=== PATIENT | female | born 1970 | race Caucasian/White ===

== ENCOUNTER 2017-03-25 11:27 | Emergency (ER) | payer BC, OTHER ==
[2017-03-25 11:33] VITALS: O2SAT 100
--- NOTE | 2017-03-25 11:57 | CPEKG ---
Heart Rate: 72 RR Interval: 833 P-R Interval: 136 QRSD Interval: 88 QT Interval: 408 QTC Interval: 447 P [place]: 40 QRS [place]: 76 T Wave [place]: 59 EKG Severity - BORDERLINE ECG - EKG Impression: SINUS RHYTHM EKG Impression: BORDERLINE T ABNORMALITIES, ANT-LAT LEADS Electronically Signed By: Ana Vazquez 25-Mar-2017 13:47:22
--- NOTE | 2017-03-25 12:12 | EDPHY ---
H & P Stated Complaint: "fluttery heart" and SOB starting last night. Hx of PAc's Time Seen by Provider: 03/25/17 11:58 HPI/ROS: CHIEF COMPLAINT: Fluttery feeling in her heart HISTORY OF PRESENT ILLNESS: This is a 46-year-old female presenting to the emergency department complaining of intermittent heart flutter with shortness of breath. Patient states this is been ongoing since August 2015 was seen at [facility] at this time for same symptoms. Patient states over the past 8 weeks she has noticed an increase in intermittent "heart flutter especially at night when I lay down". Patient states symptoms seem to worsen this morning at 5:30 a.m. after waking up and started her activities for the day. Patient also reports when she feels these flutter she gets an intermittent dizziness, but then symptoms resolved. Denies any chest pain or shortness of breath at this time. Denies any history of hypertension, CVA, nonsmoker no history of PEs or the DVTs REVIEW OF SYSTEMS: Constitutional: No fever, no chills. Fatigue Eyes: No discharge. No blurred vision ENT: No sore throat. Cardiovascular: No chest pain, "heart flutters" Respiratory: No cough. Intermittent shortness of breath. Gastrointestinal: No abdominal pain, no vomiting. Genitourinary: No hematuria. Musculoskeletal: No back pain. Skin: No rashes. Neurological: No headache. Intermittent dizziness Source: Patient - Personal History LMP (Females 10-55): Irregular Current Tetanus Diphtheria and Acellular Pertussis (TDAP): Yes - Medical/Surgical History Hx Asthma: No Hx Chronic Respiratory Disease: No Hx Diabetes: No Hx Cardiac Disease: No Hx Renal Disease: No Hx Cirrhosis: No Hx Alcoholism: No Hx HIV/AIDS: No Hx Splenectomy or Spleen Trauma: No Other PMH: throat cancer/hpv +. Arrythmia -PAC's. - Social History Smoking Status: Never smoked - Physical Exam Exam: General Appearance: Alert, no distress. HEENT: Normocephalic atraumatic Pupils equal and round no pallor or injection. Mucous membranes moist. Respiratory: There are no retractions, lungs are clear to auscultation. Cardiovascular: Regular rate and rhythm. Gastrointestinal: Abdomen is soft and nontender, no masses, bowel sounds normal. Neurological: No focal deficits. All cranial nerves intact patient seen questions appropriately Skin: Warm and dry, no rashes. Musculoskeletal: Neck is supple nontender. No calf tenderness on palpation negative Homans sign Extremities: symmetrical, full range of motion. Psychiatric: Patient is oriented X 3, patient acting appropriately Constitutional: Initial Vital Signs Temperature (C) 36.6 C 03/25/17 11:29 Heart Rate 74 03/25/17 11:29 Respiratory Rate 18 03/25/17 11:29 Blood Pressure 119/61 03/25/17 11:29 O2 Sat (%) 100 03/25/17 11:29 O2 Delivery Mode Room Air Allergies/Adverse Reactions: CT CONTRAST Allergy (Mild, Uncoded 02/26/10 10:52) Other-Enter Comments fluoroquinolones Allergy (Uncoded 02/28/14 15:33) Home Medications: Medication Instructions Recorded buPROPion SR [Wellbutrin Sr] 300 mg PO 02/25/13 Medical Decision Making ED Course/Re-evaluation: Discussed ED plan of care with patient: CBC, CMP, troponin, EKG. Patient is low risk stratification using Heart scores. Low risk for PE using PERC score 1315: Discussed all results with patient. Discharge home---> stable, discussed all discharge instructions with patient Differential Diagnosis: Other differential diagnosis considered but not limited to electrolyte imbalance , abnormal EKG, and PE - Data Points Laboratory Results: Laboratory Results 03/25/17 12:30 03/25/17 12:30 03/25/17 03/25/17 03/25/17 12:30 12:30 12:10 WBC 5.47 10^3/uL 10^3/uL (3.80-9.50) RBC 3.75 10^6/uL L 10^6/uL (4.18-5.33) Hgb 12.2 g/dL L g/dL (12.6-16.3) Hct 35.8 % L % (38.0-47.0) MCV 95.5 fL fL (81.5-99.8) MCH 32.5 pg pg (27.9-34.1) MCHC 34.1 g/dL g/dL (32.4-36.7) RDW 12.6 % % (11.5-15.2) Plt Count 176 10^3/uL 10^3/uL (150-400) MPV 10.5 fL fL (8.7-11.7) Neut % (Auto) 75.5 % H % (39.3-74.2) Lymph % (Auto) 16.6 % % (15.0-45.0) [place] % (Auto) 5.7 % % (4.5-13.0) Eos % (Auto) 1.3 % % (0.6-7.6) Baso % (Auto) 0.5 % % (0.3-1.7) Nucleat RBC Rel Count 0.0 % % (0.0-0.2) Absolute Neuts (auto) 4.13 10^3/uL 10^3/uL (1.70-6.50) Absolute Lymphs (auto) 0.91 10^3/uL L 10^3/uL (1.00-3.00) Absolute Monos (auto) 0.31 10^3/uL 10^3/uL (0.30-0.80) Absolute Eos (auto) 0.07 10^3/uL 10^3/uL (0.03-0.40) Absolute Basos (auto) 0.03 10^3/uL 10^3/uL (0.02-0.10) Absolute Nucleated RBC 0.00 10^3/uL 10^3/uL (0-0.01) Immature Gran % 0.4 % % (0.0-1.1) Immature Gran # 0.02 10^3/uL 10^3/uL (0.00-0.10) Sodium 137 mEq/L mEq/L (134-144) Potassium 4.1 mEq/L mEq/L (3.5-5.2) Chloride 106 mEq/L mEq/L (97-110) Carbon Dioxide 22 mEq/l mEq/l (22-31) Anion Gap 9 mEq/L mEq/L (8-16) BUN 13 mg/dL mg/dL (7-23) Creatinine 0.7 mg/dL mg/dL (0.6-1.0) Estimated GFR > 60 Glucose 117 mg/dL H mg/dL (70-100) Calcium 9.3 mg/dL mg/dL (8.5-10.4) Total Bilirubin 0.6 mg/dL mg/dL (0.1-1.4) AST 18 IU/L IU/L (14-46) ALT 23 IU/L IU/L (9-52) Alkaline Phosphatase 45 IU/L IU/L (38-126) Troponin I < 0.012 ng/mL ng/mL (0-0.034) Total Protein 6.0 g/dL L g/dL (6.3-8.2) Albumin 3.9 g/dL g/dL (3.5-5.0) Beta HCG, Qual NEGATIVE Departure - Departure Disposition: Home, Routine, Self-Care Clinical Impression: Fluttering sensation of heart Condition: Good Instructions: Palpitations (ED) Additional Instructions: 1. Follow up with your primary care provider this week, there may be a recommendation to wear Holter monitor to evaluate these times when you are feeling heart flutter or palpitations 2. If at any point time you feel your symptoms have worsened, such as: Chest pain, shortness of breath, lightheadedness, passing out return to the emergency department Referrals: CHARIS OWUSU [Primary Care Provider] - As per Instructions
[2017-03-25 12:37] LABS: % IMMATURE GRANULYOCYTES 0.4 % (0.0-1.1); ABSOLUTE IMMATURE GRANULOCYTES 0.02 10^3/uL (0.00-0.10); ADD DIFF? NO; ADD MORPH? NO; ADD SCAN? NO; ATYPICAL LYMPHOCYTE FLAG 0 (0-99); FRAGMENT RBC FLAG 0 (0-99); HEMATOCRIT 35.8 % (38.0-47.0); HEMOGLOBIN 12.2 g/dL (12.6-16.3); LEFT SHIFT FLG 0 (0-99); LIPEMIA HEMOLYSIS FLAG 90 (0-99); MEAN CELL HEMOGLOBIN 32.5 pg (27.9-34.1); MEAN CELL HEMOGLOBIN CONCENTR. 34.1 g/dL (32.4-36.7); MEAN CELL VOLUME 95.5 fL (81.5-99.8); MEAN PLATELET VOLUME 10.5 fL (8.7-11.7); PLATELET CLUMPS FLAG 10 (0-99); PLATELET COUNT 176 10^3/uL (150-400); RED BLOOD CELL COUNT 3.75 10^6/uL (4.18-5.33); RED CELL DISTRIBUTION WIDTH 12.6 % (11.5-15.2)
[2017-03-25 12:48] LABS: ALANINE AMINOTRANSFERASE 23 IU/L (9-52); ALBUMIN 3.9 g/dL (3.5-5.0); ALKALINE PHOSPHATASE 45 IU/L (38-126); ANION GAP 9 mEq/L (8-16); ASPARTATE AMINOTRANSFERASE 18 IU/L (14-46); BILIRUBIN,TOTAL 0.6 mg/dL (0.1-1.4); CALCIUM 9.3 mg/dL (8.5-10.4); CARBON DIOXIDE 22 mEq/l (22-31); CHLORIDE 106 mEq/L (97-110); CREATININE 0.7 mg/dL (0.6-1.0); GLOMERULAR FILTRATION RATE > 60; GLUCOSE 117 mg/dL (70-100); POTASSIUM 4.1 mEq/L (3.5-5.2); SODIUM 137 mEq/L (134-144)
[2017-03-25 13:00] LABS: TROPONIN I < 0.012 ng/mL (0-0.034)
[2017-03-25 13:38] VITALS: BP 105/70; PULSE 70; RESP 20; TEMP 98.1
== END 2017-03-25 13:38 | disposition home or self-care (01) ==
DX: I49.8 Other specified cardiac arrhythmias (principal); Z85.818 Personal history of malignant neoplasm of other sites of lip, oral cavity, and pharynx